=== PATIENT | female | born 1965 | race Two or more races ===

== ENCOUNTER 2018-08-09 11:22 | Emergency (ER) | payer SELFPAY ==
[~2018-08-09] VITALS: Ht 157.5 cm; Wt 72.0 kg
[2018-08-09 16:40] VITALS: BP 120/69
== END 2018-08-09 16:45 | disposition home or self-care (01) ==
LOC: ER 11:22
DX: M25.561 Pain in right knee (principal); M19.90 Unspecified osteoarthritis, unspecified site; I10 Essential (primary) hypertension; W01.0XXA Fall on same level from slipping, tripping and stumbling without subsequent striking against object, initial encounter; Y93.9 Activity, unspecified; Y92.9 Unspecified place or not applicable
CPT/HCPCS: 73562; 99283; L1830